=== PATIENT | male | born 1940 | race Caucasian/White ===

== ENCOUNTER 2018-05-14 09:31 | Emergency (ER) | payer MEDICARE, BC ==
[2018-05-14] MEDS ORDERED: MECLIZINE 25 MG TAB PO STA (10:09)
[2018-05-14] MEDS ORDERED: DIAZEPAM 5 MG/ML 2 ML INJ IVP STA (10:09)
--- NOTE | 2018-05-14 10:24 | ED ---
General Adult HPI - General Chief complaint: Dizziness Stated complaint: DIZZINESS Time Seen by Provider: 05/14/18 09:35 Source: patient, RN notes reviewed Mode of arrival: ambulatory Limitations: no limitations - History of Present Illness Initial comments: This is a 77-year-old male presents emergency Department complaining of dizziness. Patient states anytime he gets up from lying down or sits up he gets very dizzy in the room feels like it spinning. Patient states he gets nauseated at times and this morning he actually and dry heaves. Patient states he started experiencing since yesterday afternoon. Patient notices that movement definitely brings on the symptoms. Patient denies any headache patient denies any numbness or focal weakness. Patient denies any near syncopal episode or syncopal episode. Patient denies any recent fever chills per patient denies any previous symptoms that are similar. Patient denies any decreased hearing recently. Patient denies any tinnitus. Patient denies any abdominal pain. Patient denies chest pain difficulty breathing shortness of breath. Patient denies any recent injury or trauma. Patient states he was lying in bed like he is now and not moving he feels fine - Related Data Home Medications Medication Instructions Recorded Confirmed Aspirin [Adult Low Dose Aspirin EC] 81 mg PO QAM 05/14/18 05/14/18 Clopidogrel [Plavix] 75 mg PO QAM 05/14/18 05/14/18 Simvastatin [Zocor] 10 mg PO HS 05/14/18 05/14/18 Vit C/E/Zn/Coppr/Lutein/Zeaxan 2 cap PO BID 05/14/18 05/14/18 [Preservision Areds 2 Softgel] Previous Rx's Medication Instructions Recorded Meclizine [Antivert] 25 mg PO TID #20 tab 05/14/18 Allergies Allergy/AdvReac Type Severity Reaction Status Date / Time morphine AdvReac Nausea & Verified 05/14/18 10:09 Vomiting & Diarrhea Review of Systems ROS Statement: Those systems with pertinent positive or pertinent negative responses have been documented in the HPI. ROS Other: All systems not noted in ROS Statement are negative. Past Medical History Past Medical History: Hyperlipidemia Additional Past Medical History / Comment(s): emphysema, macular degeneration History of Any Multi-Drug Resistant Organisms: None Reported Past Surgical History: Hernia Repair, Orthopedic Surgery Additional Past Surgical History / Comment(s): B shoulder, illiac stent Past Psychological History: No Psychological Hx Reported Smoking Status: Current every day smoker Past Alcohol Use History: None Reported Past Drug Use History: None Reported General Exam - General Exam Comments Initial Comments: GENERAL: Patient is well-developed and well-nourished. Patient is nontoxic and well- hydrated and is in no acute distress. ENT: Neck is soft and supple. No significant lymphadenopathy is noted. Oropharynx is clear. Moist mucous membranes. Neck has full range of motion without eliciting any pain. EYES: The sclera were anicteric and conjunctiva were pink and moist. Extraocular movements were intact and pupils were equal round and reactive to light. Eyelids were unremarkable. PULMONARY: Unlabored respirations. Good breath sounds bilaterally. No audible rales rhonchi or wheezing was noted. CARDIOVASCULAR: There is a regular rate and rhythm without any murmurs gallops or rubs. ABDOMEN: Soft and nontender with normal bowel sounds. No palpable organomegaly was noted. There is no palpable pulsatile mass. SKIN: Skin is clear with no lesions or rashes and otherwise unremarkable. NEUROLOGIC: Patient is alert and oriented x3. Cranial nerves II through XII are grossly intact. Motor and sensory are also intact. Normal speech, volume and content. Symmetrical smile. Cerebellar exam grossly intact. MUSCULOSKELETAL: Normal extremities with adequate strength and full range of motion. No lower extremity swelling or edema. No calf tenderness. LYMPHATICS: No significant lymphadenopathy is noted PSYCHIATRIC: Normal psychiatric evaluation. Limitations: no limitations Course Vital Signs 05/14/18 05/14/18 05/14/18 09:35 10:30 11:00 Temperature 97.9 F Pulse Rate 60 57 L 51 L Respiratory 18 16 16 Rate Blood Pressure 149/96 129/83 125/78 Blood Pressure [Right Arm Sitting] Blood Pressure [Right Arm Standing] Blood Pressure [Right Arm Supine] O2 Sat by Pulse 97 96 95 Oximetry 05/14/18 05/14/18 05/14/18 11:30 12:00 12:30 Temperature Pulse Rate 47 L 51 L Respiratory 16 16 Rate Blood Pressure 104/72 Blood Pressure 134/70 [Right Arm Sitting] Blood Pressure 105/80 [Right Arm Standing] Blood Pressure 128/74 [Right Arm Supine] O2 Sat by Pulse 95 97 Oximetry 05/14/18 05/14/18 13:00 13:39 Temperature Pulse Rate Respiratory Rate Blood Pressure 147/79 Blood Pressure 143/78 [Right Arm Sitting] Blood Pressure 136/76 [Right Arm Standing] Blood Pressure 146/77 [Right Arm Supine] O2 Sat by Pulse Oximetry Medical Decision Making - Medical Decision Making EKG shows sinus bradycardia 53 bpm patient states this is his normal rate. Patient's VT interval is 182 QRS is 144 QT interval 496 QTC is 465. Patient has a left bundle branch block. Patient's CT of the brain shows no acute abnormality. Chest x-ray showed no acute abnormality. Patient received a liter fluid in the emergency department and no longer was dizzy with position. New. Patient also received a little Valium and some Antivert in the emergency department. - Lab Data Result diagrams: 05/14/18 10:00 05/14/18 10:00 Lab Results 05/14/18 05/14/18 05/14/18 Range/Units 10:00 10:00 10:00 WBC 5.7 (3.8-10.6) k/uL RBC 5.60 (4.30-5.90) m/uL Hgb 16.5 (13.0-17.5) gm/dL Hct 49.1 (39.0-53.0) % MCV 87.8 (80.0-100.0) fL MCH 29.4 (25.0-35.0) pg MCHC 33.5 (31.0-37.0) g/dL RDW 13.6 (11.5-15.5) % Plt Count 252 (150-450) k/uL Neutrophils % 67 % Lymphocytes % 22 % Monocytes % 7 % Eosinophils % 2 % Basophils % 1 % Neutrophils # 3.8 (1.3-7.7) k/uL Lymphocytes # 1.3 (1.0-4.8) k/uL Monocytes # 0.4 (0-1.0) k/uL Eosinophils # 0.1 (0-0.7) k/uL Basophils # 0.0 (0-0.2) k/uL PT (9.0-12.0) sec INR (<1.2) APTT (22.0-30.0) sec Sodium 140 (137-145) mmol/L Potassium 4.8 (3.5-5.1) mmol/L Chloride 108 H (98-107) mmol/L Carbon Dioxide 23 (22-30) mmol/L Anion Gap 9 mmol/L BUN 19 (9-20) mg/dL Creatinine 0.77 (0.66-1.25) mg/dL Est GFR (CKD-EPI)AfAm >90 (>60 ml/min/1.73 sqM) Est GFR (CKD-EPI)NonAf 88 (>60 ml/min/1.73 sqM) Glucose 102 H (74-99) mg/dL Calcium 9.7 (8.4-10.2) mg/dL Magnesium 2.1 (1.6-2.3) mg/dL Total Bilirubin 0.5 (0.2-1.3) mg/dL AST 19 (17-59) U/L ALT 25 (21-72) U/L Alkaline Phosphatase 85 (38-126) U/L Troponin I <0.012 (0.000-0.034) ng/mL Total Protein 7.5 (6.3-8.2) g/dL Albumin 4.3 (3.5-5.0) g/dL 05/14/18 Range/Units 10:38 WBC (3.8-10.6) k/uL RBC (4.30-5.90) m/uL Hgb (13.0-17.5) gm/dL Hct (39.0-53.0) % MCV (80.0-100.0) fL MCH (25.0-35.0) pg MCHC (31.0-37.0) g/dL RDW (11.5-15.5) % Plt Count (150-450) k/uL Neutrophils % % Lymphocytes % % Monocytes % % Eosinophils % % Basophils % % Neutrophils # (1.3-7.7) k/uL Lymphocytes # (1.0-4.8) k/uL Monocytes # (0-1.0) k/uL Eosinophils # (0-0.7) k/uL Basophils # (0-0.2) k/uL PT 10.2 (9.0-12.0) sec INR 0.9 (<1.2) APTT 24.3 (22.0-30.0) sec Sodium (137-145) mmol/L Potassium (3.5-5.1) mmol/L Chloride (98-107) mmol/L Carbon Dioxide (22-30) mmol/L Anion Gap mmol/L BUN (9-20) mg/dL Creatinine (0.66-1.25) mg/dL Est GFR (CKD-EPI)AfAm (>60 ml/min/1.73 sqM) Est GFR (CKD-EPI)NonAf (>60 ml/min/1.73 sqM) Glucose (74-99) mg/dL Calcium (8.4-10.2) mg/dL Magnesium (1.6-2.3) mg/dL Total Bilirubin (0.2-1.3) mg/dL AST (17-59) U/L ALT (21-72) U/L Alkaline Phosphatase (38-126) U/L Troponin I (0.000-0.034) ng/mL Total Protein (6.3-8.2) g/dL Albumin (3.5-5.0) g/dL Disposition Clinical Impression: Orthostatic hypotension, Vertigo Disposition: HOME SELF-CARE Condition: Good Instructions (If sedation given, give patient instructions): Vertigo (ED) Prescriptions: Meclizine [Antivert] 25 mg PO TID #20 tab Is patient prescribed a controlled substance at d/c from ED?: No Referrals: Nonstaff,Physician [Primary Care Provider] - 1-2 days Time of Disposition: 13:43
[2018-05-14 10:29] LABS: ALT 25 U/L (21-72); AST 19 U/L (17-59); Albumin 4.3 g/dL (3.5-5.0); Alkaline Phosphatase 85 U/L (38-126); Anion Gap 9 mmol/L; Blood Urea Nitrogen 19 mg/dL (9-20); Calcium 9.7 mg/dL (8.4-10.2); Carbon Dioxide 23 mmol/L (22-30); Chloride 108 mmol/L (98-107); Glucose 102 mg/dL (74-99); Magnesium 2.1 mg/dL (1.6-2.3); Potassium 4.8 mmol/L (3.5-5.1); Sodium 140 mmol/L (137-145); Total Bilirubin 0.5 mg/dL (0.2-1.3); Total Protein 7.5 g/dL (6.3-8.2)
--- NOTE | 2018-05-14 10:33 | XR ---
EXAMINATION TYPE: XR chest 2V DATE OF EXAM: 05/14/2018 COMPARISON: NONE HISTORY: History of emphysema with dizziness and weakness today. TECHNIQUE: Frontal and lateral views of the chest are obtained. FINDINGS: Chronic parenchymal changes are evident bilaterally with more focal retrocardiac opacity id entified. Without prior comparison cannot exclude acute infiltrate at this level. No pleural effusio n or pneumothorax is identified bilaterally. The cardiac silhouette size is within mildly enlarged. The osseous structures are demineralized. Underlying scoliosis is present. IMPRESSION: Chronic parenchymal changes with suspected retrocardiac acute infiltrate and/or atelecta sis.
--- NOTE | 2018-05-14 10:34 | CT ---
EXAMINATION TYPE: CT brain wo con DATE OF EXAM: 05/14/2018 HISTORY: Dizziness CT DLP: 1188.4 mGycm. Automated Exposure Control for Dose Reduction was Utilized. TECHNIQUE: CT scan of the head is performed without contrast. COMPARISON: None. FINDINGS: There is no acute intracranial hemorrhage or midline shift identified. There is diffuse v entricular and sulcal prominence consistent with diffuse age-related cerebral atrophy. There is low- attenuation in the periventricular white matter consistent with chronic small vessel ischemic change. The globes are intact and the visualized sinuses are clear. No suspicious opacification mastoid a ir cells is seen bilaterally. IMPRESSION: No acute intracranial hemorrhage or midline shift. There is mild diffuse age-related ce rebral atrophy and chronic small vessel ischemic change noted.
[2018-05-14 10:42] LABS: Basophils % (A) 1 %; Eosinophils # (A) 0.1 k/uL (0-0.7); Eosinophils % (A) 2 %; HCT 49.1 % (39.0-53.0); HGB 16.5 gm/dL (13.0-17.5); Lymphocytes # (A) 1.3 k/uL (1.0-4.8); Lymphocytes % (A) 22 %; MCH 29.4 pg (25.0-35.0); MCHC 33.5 g/dL (31.0-37.0); MCV 87.8 fL (80.0-100.0); Mean Platelet Volume 6.5; Monocytes # (A) 0.4 k/uL (0-1.0); Monocytes % (A) 7 %; Neutrophils # (A) 3.8 k/uL (1.3-7.7); Neutrophils % (A) 67 %; Platelet Count 252 k/uL (150-450); RDW 13.6 % (11.5-15.5); WBC 5.7 k/uL (3.8-10.6)
[2018-05-14 10:52] VITALS: RESP 16
[2018-05-14 11:20] LABS: INR 0.9 (<1.2); Partial Thromboplastin Time 24.3 sec (22.0-30.0); Prothrombin Time 10.2 sec (9.0-12.0)
[2018-05-14] MEDS ORDERED: SODIUM CHLORIDE 0.9% 1,000 ML IV ONE (12:37)
[2018-05-14 13:52] VITALS: BP 141/69; PULSE 52; TEMP 97.8
== END 2018-05-14 13:45 | disposition home or self-care (01) ==
LOC: EC 09:31
DX: I95.1 Orthostatic hypotension (principal); I44.7 Left bundle-branch block, unspecified; R00.1 Bradycardia, unspecified; E78.5 Hyperlipidemia, unspecified; F17.200 Nicotine dependence, unspecified, uncomplicated; Z88.5 Allergy status to narcotic agent; Z79.02 Long term (current) use of antithrombotics/antiplatelets; Z79.82 Long term (current) use of aspirin; Z79.899 Other long term (current) drug therapy; Z95.828 Presence of other vascular implants and grafts
CPT/HCPCS: 36415; 93005; 80053; 83735; 84484; 85025; 85610; 85730; 71046; 70450; 99284; 96374; 96361; J3360